=== PATIENT | female | born 1970 | race Two or more races ===

== ENCOUNTER 2016-09-10 08:49 | Day surgery (SDC) | payer OTHER ==
[2016-09-09 11:58] VITALS: BMI 27.1
[2016-09-10] VITALS (10 sets, daily range): BP systolic 93–121; BP diastolic 59–67; PULSE 60–77; RESP 12–32; Ht 154.9 cm; Wt 63.4 kg
[~2016-09-10] VITALS: Ht 154.9 cm; Wt 63.4 kg
[2016-09-10] MEDS ORDERED: SOD CHLORIDE 0.9% 1,000 ML IV ONE (09:00)
[2016-09-10] MEDS ORDERED: CEFAZOLIN 2 GM/50 ML (PMX) 50 ML IVPB ONE (09:00)
[2016-09-10] MEDS ORDERED: BUPIVACAINE 0.25% (MPF) 30 ML INJ ONE (09:36)
[2016-09-10] MEDS ORDERED: LIDOCAINE 2% (MDV) 20 ML INJ ONE (10:16)
[2016-09-10] MEDS ORDERED: MIDAZOLAM 1 MG/ML 2 ML INJ ONE (10:24)
[2016-09-10] MEDS ORDERED: PROPOFOL 20 ML ONE (10:41)
[2016-09-10] MEDS ORDERED: CEFAZOLIN 1 GM INJ ONE (10:41)
[2016-09-10] MEDS ORDERED: KETOROLAC 30 MG INJ ONE (10:42)
[2016-09-10] MEDS ORDERED: HYDROmorphONE (0.2 MG/ML) 10ML SYG IV PRN ×3 (11:00)
[2016-09-10] MEDS ORDERED: ONDANSETRON 4 MG INJ IV PRN (11:00)
[2016-09-10] MEDS ORDERED: MEPERIDINE 25 MG INJ IV PRN (11:00)
[2016-09-10] MEDS ORDERED: DIPHENHYDRAMINE 50 MG INJ IV PRN (11:00)
[2016-09-10] MEDS ORDERED: OXYCODONE/ACETAMINOPHEN (5/325) TAB PO PRN ×2 (11:00)
--- NOTE | 2016-09-10 11:28 | OPR ---
DATE OF OPERATION: 09/10/2016 INDICATION: This is a 46-year-old female with right leg mass. She requests surgical excision. Ris ks, alternatives, benefits, and personnel were discussed with the patient. The patient expressed un derstanding and consents to the operation. PREOPERATIVE DIAGNOSIS: Right leg mass. POSTOPERATIVE DIAGNOSIS: Right leg mass. OPERATION PERFORMED: 1. Excision of right leg mass with 3 cm size incision and 3 cm size mass. 2. Localized adjacent tissue transfer with the use of skin flaps. SURGEON: Nadege Law MD SPECIMEN: Right leg mass. COMPLICATIONS: None. ANESTHESIA: General. PROCEDURE: The patient was taken to the OR, prepped and draped in the usual sterile fashion. Surgi annette timeout was performed. IV antibiotics were given. Local anesthesia was infiltrated over the ma ss. A 10 blade was used to make an incision. Dissection cautery was carried down to the mass. The re appeared to be a cystic component. The cystic contents were extruded and examined and sent for daphne dickerson. Additionally, the cystic wall was also sampled and biopsied. There was good hemostasis. Due to the large tissue defect, localized adjacent tissues transfer with the use of skin flaps. Mult ilayer closure with interrupted 3-0 Vicryl and skin juliette. Dry dressings were applied. Dictated By: NADEGE JONES/RIVERA Conf#: [id number] DID#: [id number]
[2016-09-10] MEDS ORDERED: HYDROCODONE/APAP (5/325) TAB PO ONE (11:30)
== END 2016-09-10 12:45 | disposition home or self-care (01) ==
LOC: SDS 08:49
PROVIDERS: ATTEND Surgery
DX: R22.41 Localized swelling, mass and lump, right lower limb (principal)
CPT/HCPCS: 14020; 88304; J0690; J1885; J2250; Z7512; Z7610